=== PATIENT | male | born 1975 | race Caucasian/White ===

== ENCOUNTER 2020-07-13 12:34 | Emergency (ER) | payer OTHER, SELFPAY ==
[2020-07-13 12:38] VITALS: PULSE 81; RESP 20; TEMP 36.7; O2SAT 99
--- NOTE | 2020-07-13 12:42 | ED.URI ---
HPI - URI/Sore Throat General Chief Complaint: Upper Respiratory Infection Stated Complaint: upper respiratory infection Source: patient Mode of arrival: ambulatory Limitations: no limitations History of Present Illness HPI Narrative: Patient is a 44-year-old male who presents for rapid Covid testing at this time. Patient reports exposure on 07/08/2020. He denies symptoms at this time. He reports the need for testing related to work. MD elicited complaint: other (Positive Covid exposure) Review of Systems Review of Systems: Narrative: CONSTITUTIONAL: Denies fever, chills, or sweats. EYES: Denies visual changes, redness, or discharge. ENT: Denies rhinorrhea, congestion, sore throat, or otalgia. CARDIOVASCULAR: Denies chest pain, palpitations, or edema. RESPIRATORY: Denies cough or dyspnea. GASTROINTESTINAL: Denies abdominal pain, nausea, vomiting, or diarrhea. GENITOURINARY: Denies dysuria or hematuria. SKIN: Denies rash or itching. MUSCULOSKELETAL: Denies back pain, joint pain, or myalgia. NEUROLOGIC: Denies headache, numbness, dizziness, or weakness. PSYCHIATRIC: Denies anxiety or depression. PMFSH Past Medical History Medical History (Updated 07/13/20 @ 12:46 by DARLIN Desouza) No significant past medical history Surgical History Surgical History (Updated 07/13/20 @ 12:43 by DARLIN Desouza) No significant past surgical history Family History Family History (Updated 07/13/20 @ 12:44 by DARLIN Desouza) Other No significant family history Social History Social History (Updated 07/13/20 @ 12:44 by DARLIN Desouza) Smoking status: Never smoker Alcohol intake: never Substance use: never Living arrangements: with family Gender identity (if verbalized by the patient): Male Exam Narrative: Exam Narrative: GENERAL: Well-appearing, well-nourished, and in no acute distress. HEAD: Normocephalic, atraumatic. EYES: No redness or drainage. ENT: Mucous membranes pink and moist. CHEST: No respiratory distress. HEART: Regular rate and rhythm. EXTREMITIES: Normal range of motion. No edema. SKIN: Warm, dry, no rash. NEURO: No focal deficits. Alert and oriented x3. Gait steady. PSYCH: Normal affect. No signs of depression or anxiety. Course Vital Signs Vital signs: Vital Signs Temperature 36.7 C 07/13/20 12:38 Pulse Rate 81 07/13/20 12:38 Respiratory Rate 20 07/13/20 12:38 Pulse Oximetry 99 07/13/20 12:38 Temperature 36.7 C 07/13/20 12:38 Pulse Rate 81 07/13/20 12:38 Respiratory Rate 20 07/13/20 12:38 Pulse Oximetry 99 07/13/20 12:38 MDM - URI/Sore Throat Differential Diagnosis Differential diagnosis: Likely upper respiratory infection, viral infection, influenza and other (COVID-19 exposure) Critical Care Time Critical Care Time Critical Care Time: No Discharge Plan Discharge Clinical Impression: Contact with and (suspected) exposure to covid-19 Patient Disposition: Home, Self-Care Condition: Stable Instructions: Antibiotic Form Follow-up/Referrals: PHYSICIAN,CLIENT SUPPORT COORDINATOR [Primary Care Provider] -
[2020-07-13 22:18] LABS: SARS-CoV-2 RNA PCR Negative
== END 2020-07-13 13:26 | disposition home or self-care (01) ==
PROVIDERS: Emergency Provider Nurse Practitioner
DX: Z20.822 Contact with and (suspected) exposure to COVID-19 (principal)
CPT/HCPCS: 87426; 99203; C9803; G0463; U0003